=== PATIENT | male | born 1980 ===

== ENCOUNTER 2025-10-14 00:34 | Observation (INO) | payer SELFPAY ==
[~2025-10-14] VITALS: Ht 154.9 cm; Wt 98.7 kg
[2025-10-14 00:46] VITALS: BP 143/83
[2025-10-14 00:53] LABS: BASO # 0.2 10*3/uL (0.0-0.1); BASO % 1.6 % (0.0-1.0); EOS # 0.2 10*3/uL (0.0-0.4); EOS % 2.5 % (1.0-4.0); MEAN CELL VOLUME 88.8 fl (80.0-94.0); MEAN CORPUSCULAR HGB 31.8 pg (27.0-31.0); MEAN PLATELET VOLUME 9.3 fl (9.6-12.3); MONO # 0.7 10*3/uL (0.1-1.0); MONO % 7.3 % (3.0-9.0); NEUT # 5.5 10*3/uL (2.3-7.9); NEUT % 55.9 % (47.0-73.0); NUCLEATED RED BLOOD CELL 0.0 % (0.0-0.0); NUCLEATED RED BLOOD CELL 0.0 10*3/uL (0.0-0.0); PLATELET COUNT AUTOMATED 412 10*3/uL (130-400); RED CELL DISTRI WIDTH 12.5 % (0-14.5)
[2025-10-14 01:28] LABS: BUN 10 mg/dl (9-23); SGPT/ALT 47 U/L (5-49)
[2025-10-14] MEDS ORDERED: ASPIRIN 300 MG SUPP R ONE (02:00)
[2025-10-14] MEDS ORDERED: NITROGLYCERIN 0.4 MG BOT SL ONE (02:05)
[2025-10-14] MEDS ORDERED: ASPIRIN 325 MG ENTERIC COATED PO ONE (02:20)
[2025-10-14 02:37] VITALS: BP 115/74
[2025-10-14 03:02] LABS: ACT PARTIAL THROMBO TIME 27.3 SECONDS (20.0-32.1)
[2025-10-14] MEDS ORDERED: BISACODYL 5 MG TAB PO PRN (04:40)
[2025-10-14] MEDS ORDERED: Ondansetron Hydrochloride 4 MG/2 ML VIAL IV PRN (04:40)
[2025-10-14] MEDS ORDERED: BISACODYL 10 MG SUPP R PRN (04:40)
[2025-10-14] MEDS ORDERED: ACETAMINOPHEN 650 MG SUPP R PRN (04:40)
[2025-10-14] MEDS ORDERED: Acetaminophen/Hydrocodone 5 MG/325 MG TABLET PO PRN (04:40)
[2025-10-14] MEDS ORDERED: ACETAMINOPHEN 325 MG TAB PO PRN (04:40)
[2025-10-14 06:17] LABS: BUN 9 mg/dl (9-23); FREE T4 1.26 ng/dl (0.89-1.76); SGPT/ALT 42 U/L (5-49)
[2025-10-14] MEDS ORDERED: SODIUM CHLORIDE 0.9% 1,000 ML IV ONE (06:20)
[2025-10-14 06:25] LABS: BASO # 0.1 10*3/uL (0.0-0.1); BASO % 1.5 % (0.0-1.0); EOS # 0.3 10*3/uL (0.0-0.4); EOS % 2.8 % (1.0-4.0); MEAN CELL VOLUME 89.0 fl (80.0-94.0); MEAN CORPUSCULAR HGB 30.8 pg (27.0-31.0); MEAN PLATELET VOLUME 9.7 fl (9.6-12.3); MONO # 0.8 10*3/uL (0.1-1.0); MONO % 8.5 % (3.0-9.0); NEUT # 4.8 10*3/uL (2.3-7.9); NEUT % 51.8 % (47.0-73.0); NUCLEATED RED BLOOD CELL 0.0 % (0.0-0.0); NUCLEATED RED BLOOD CELL 0.0 10*3/uL (0.0-0.0); PLATELET COUNT AUTOMATED 388 10*3/uL (130-400); RED CELL DISTRI WIDTH 12.9 % (0-14.5)
[2025-10-14] MEDS ORDERED: Regadenoson 0.4 MG/5 ML SYR IV ONE (06:42)
[2025-10-14 06:46] VITALS: BP 127/86
[2025-10-14] MEDS ORDERED: Technetium Tc 99M Tetrofosmi 0.23 MG KIT IJ SCH (07:20)
[2025-10-14 07:35] LABS: VITAMIN D, 25-HYDROXY 17.3 ng/mL (30-100)
[2025-10-14] MEDS ORDERED: ASPIRIN ENTERIC COATED 81 MG TAB PO SCH (10:00)
[2025-10-14] MEDS ORDERED: ATORVASTATIN CALCIUM 80 MG TAB PO SCH (10:00)
[2025-10-14 10:15] VITALS: BP 137/85
[2025-10-14 10:37] VITALS: BP 139/85
[2025-10-14] MEDS ORDERED: METFORMIN XR500 MG PO ×2 (17:14→17:21)
== END 2025-10-14 18:28 | disposition home or self-care (01) ==
LOC: ED 00:34 → EDHOLD 03:56 → 5E 03:56 → EDHOLD 03:56 → 5E 07:49
PROVIDERS: Student in an Organized Health Care Education/Training Program; ADMIT Student in an Organized Health Care Education/Training Program; ATTEND Student in an Organized Health Care Education/Training Program
DX: R07.89 Other chest pain (principal); R00.0 Tachycardia, unspecified; D75.89 Other specified diseases of blood and blood-forming organs; E87.1 Hypo-osmolality and hyponatremia; R74.01 Elevation of levels of liver transaminase levels; R74.8 Abnormal levels of other serum enzymes; H81.10 Benign paroxysmal vertigo, unspecified ear; G47.33 Obstructive sleep apnea (adult) (pediatric); M1A.9XX0 Chronic gout, unspecified, without tophus (tophi); E78.2 Mixed hyperlipidemia; Z79.899 Other long term (current) drug therapy